=== PATIENT | female | born 1980 | race American Indian/Alaskan Native ===

== ENCOUNTER 2022-03-10 12:04 | Emergency (ER) | payer MEDICAID ==
[2022-03-10 12:11] VITALS: BP 189/113
--- NOTE | 2022-03-10 13:08 | XRay Report ---
CHEST 2 VIEWS INDICATION / CLINICAL INFORMATION: Chest Pain. COMPARISON: None available. FINDINGS: SUPPORT DEVICES: None. HEART / MEDIASTINUM: No significant abnormality. LUNGS / PLEURA: No significant pulmonary or pleural abnormality. No pneumothorax. ADDITIONAL FINDINGS: No significant additional findings. IMPRESSION: 1. No acute findings. Signer Name: Andrez Noel MD Signed: 03/10/2022 1:03 PM Workstation Name: [id number]
[2022-03-10 13:29] LABS: Basophils % (Auto) 0.3 % (0.0-1.8); Eosinophils # (Auto) 0.1 K/mm3 (0.0-0.4); Eosinophils % (Auto) 0.7 % (0.0-4.3); Hematocrit 40.7 % (30.3-42.9); Hemoglobin 13.8 gm/dl (10.1-14.3); Lymphocytes # (Auto) 2.2 K/mm3 (1.2-5.4); Lymphocytes % (Auto) 27.5 % (13.4-35.0); Mean Corpuscular HGB Conc 34 % (30-34); Mean Corpuscular Volume 89 fl (79-97); Monocytes # (Auto) 0.4 K/mm3 (0.0-0.8); Monocytes % (Auto) 4.5 % (0.0-7.3); Platelet Count 300 K/mm3 (140-440); Red Blood Count 4.59 M/mm3 (3.65-5.03); Red Cell Distribution Width 14.3 % (13.2-15.2)
[2022-03-10 13:35] LABS: INR 0.95 (0.87-1.13)
[2022-03-10 13:48] LABS: Alanine Aminotransferase 11 units/L (7-56); Albumin 4.6 g/dL (3.9-5); BUN/Creatinine Ratio 14; Blood Urea Nitrogen 11 mg/dL (7-17); Calcium 9.7 mg/dL (8.4-10.2); Hemolysis Index 2
--- NOTE | 2022-03-11 11:12 | Electrocardiograph Report ---
Test Date: 2022-03-10 Test Time: 12:15:55 Pat Name: MARIELA GATES Department: Room: Gender: F Director Of Strategy & Mobile: MARLA : 1980 Requested By: ED DOC Order Number: [id number] Reading MD: Chris Knott Measurements Intervals [place] Rate: 107 P: 55 WY: 139 QRS: -7 QRSD: 81 T: 17 QT: 329 QTc: 440 Interpretive Statements Sinus tachycardia INCOMPLETE RIGHT BUNDLE BRANCH BLOCK Left atrial enlargement No previous ECG available for comparison Electronically Signed On 03-11-2022 11:12:18 EDT by Chris Knott
== END 2022-03-12 16:29 | disposition left against medical advice (07) ==
LOC: ED 12:04
DX: R07.9 Chest pain, unspecified (principal); Z53.21 Procedure and treatment not carried out due to patient leaving prior to being seen by health care provider
CPT/HCPCS: 36415; 71046; 80053; 84484; 85025; 85610; 85730; 93005